=== PATIENT | male | born 1970 | race Caucasian/White ===

== ENCOUNTER 2021-01-20 18:47 | Emergency (ER) | payer SELFPAY ==
[~2021-01-20] VITALS: Ht 167.6 cm; Wt 109.1 kg
[2021-01-20] MEDS ORDERED: TRAM50TA PO (21:16)
--- NOTE | 2021-01-20 21:17 | PHYS DOC ---
Past Medical History Past Medical History: Diabetes-Type II Past Surgical History: Tonsillectomy Additional Past Surgical Histo: RIGHT FOOT FRACTURE Smoking Status: Never Smoker Alcohol Use: None General Adult EDM: Chief Complaint: LOWEREXTREMITY INJURY HPI: HPI: Patient is a 50 year old male who presents with was helping move some furniture and was pushing it up some stairs when he felt a snap in a pool like a rubber band on his calf. No tenderness to his right calf with a swelling lump deformity. Tenderness to this area also. Patient rating his pain a 9 out of 10. Patient has a history of diabetes, right foot fracture and tonsillectomy. He states he does have an orthopedic doctor at home at in [place], [place]. He states that if he needs to he can leave and go home tomorrow. Review of Systems: Review of Systems: Constitutional: Denies fever or chills. [] Eyes: Denies change in visual acuity. [] HENT: Denies nasal congestion or sore throat. [] Respiratory: Denies cough or shortness of breath. [] Cardiovascular: Denies chest pain or + right calf lump edema. [] GI: Denies abdominal pain, nausea, vomiting, bloody stools or diarrhea. [] : Denies dysuria. [] Musculoskeletal: Denies back pain or joint pain. + Right calf pain [] Integument: Denies rash. [] Neurologic: Denies headache, focal weakness or sensory changes. [] Endocrine: Denies polyuria or polydipsia. [] Lymphatic: Denies swollen glands. [] Psychiatric: Denies depression or anxiety. [] Heart Score: C/O Chest Pain: No Risk Factors: Risk Factors: DM, Current or recent (<one month) smoker, HTN, HLP, family history of CAD, obesity. Risk Scores: Score 0 - 3: 2.5% MACE over next 6 weeks - Discharge Home Score 4 - 6: 20.3% MACE over next 6 weeks - Admit for Clinical Observation Score 7 - 10: 72.7% MACE over next 6 weeks - Early Invasive Strategies Allergies: Allergies: Allergies Coded Allergies Type Severity Reaction Last Updated Verified No Known Drug Allergies 01/20/21 No Physical Exam: PE: Constitutional: Well developed, well nourished, no acute distress, non-toxic appearance. [] HENT: Normocephalic, atraumatic, bilateral external ears normal, oropharynx moist, no oral exudates, nose normal. [] Eyes: PERRLA, EOMI, conjunctiva normal, no discharge. [] Neck: Normal range of motion, no tenderness, supple, no stridor. [] Cardiovascular:Heart rate regular rhythm, no murmur [] Lungs & Thorax: Bilateral breath sounds clear to auscultation [] Abdomen: Bowel sounds normal, soft, no tenderness, no masses, no pulsatile masses. [] Skin: Warm, dry, no erythema, no rash. [] Back: No tenderness, no CVA tenderness. [] Extremities: Right calf tenderness, no cyanosis, no clubbing, ROM intact but limited, 1+ lump edema to back of calf. [] Neurologic: Alert and oriented X 3, normal motor function, normal sensory function, no focal deficits noted. [] Psychologic: Affect normal, judgement normal, mood normal. [] Current Patient Data: Vital Signs: Vital Signs Date Time Temp Pulse Resp B/P (MAP) Pulse Ox O2 Delivery O2 Flow Rate FiO2 01/20/21 20:08 98.5 20 167/107 (127) Room Air 98.5 EKG: EKG: [] Radiology/Procedures: Radiology/Procedures: [] Impression: [facility] [address] [place], [place] [id number] IMAGING REPORT Signed PATIENT: EVON JUNE ACCOUNT: [id number] : 1970 LOCATION: ER AGE: 50 SEX: M EXAM STATUS: REG ER ORD. PHYSICIAN: KAREL BISHOP APRN REASON: FELT A SNAP IN HIS CALF PROCEDURE: TIBIA FIBULA RIGHT XR KNEE 4 VIEWS WITH PATELLA_RT, XR EXAM OF ANKLE_RIGHT 3VIEWS, XR RT TIBIA+FIBULA Clinical indications: Reason: FELT A SNAP IN HIS CALF pain Findings: Three-view right ankle study: Old healed fractures of the distal right fibula and medial malleolus of the distal right tibia are seen with metallic surgical hardware. Nonunited ossification center of the distal right fibular epiphysis is seen. No acute-appearing fracture is evident. There is lucency of the medial dome of the talus consistent with an old osteochondral lesion. Three-view right tibia and fibula: No acute fracture or dislocation or lytic process is seen. 4 view right knee study: The patella is normally aligned. No acute fracture or dislocation or lytic process is evident. 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 There is mild degenerative osteoarthritis of the lateral tibial femoral joint compartment. There is mild degenerative osteoarthritis of the patellofemoral joint compartment. No significant knee joint effusion is seen. IMPRESSION: No acute fracture. Old healed fractures with fixation hardware involving the distal right fibula and the medial malleolus of the distal right tibia. Lucency of the dome of the talus is seen consistent with an old osteochondral lesion. This may be further evaluated with outpatient MRI study of the right ankle if clinically needed. Electronically signed by: Jovani Wise MD (01/20/2021 9:14 PM) [id number] DICTATED and SIGNED BY: JOVANI WISE MD DATE: 01/20/21 [id number] 0 Course & Med Decision Making: Course & Med Decision Making Pertinent Labs and Imaging studies reviewed. (See chart for details) Patient is alert and oriented x4. Ambulatory but limping on the lower extremity. Patient does have control of his knee with full range of motion in the ankle but it is painful with movement. He can wiggle his toes. Pedal pulses strong and present. Cap refill less than 2 seconds. There is no bruising seen. Patient will be placed in a posterior and stirrup splint. He also be given crutches. Splint assessment: Neurovascularly intact post splint replacement with good fit. Patient's extremity symptoms have stabilized well they have been evaluated in the department and are appropriate for outpatient follow-up. No evidence of compartment syndrome, neurologic injury, vascular injury, open joint, open fracture, tendon laceration, or foreign body. [] Dragon Disclaimer: Dragon Disclaimer: This electronic medical record was generated, in whole or in part, using a voice recognition dictation system. Departure Departure Impression: Primary Impression: Leg pain, right Disposition: 01 HOME / SELF CARE / HOMELESS Referrals: UNKNOWN PCP NAME (PCP) ROBERT VACA MD Patient Instructions: Patellar Tendon Tear/Disruption with [facility], Posterior Tibial Tendon Rupture with [facility] Additional Instructions: Keep using ice and elevation. Take medication as prescribed and with food. Nerve pain medication will make you sleepy. Do not drive or drink any alcohol while taking the pain medication. Follow-up with your orthopedic doctor as soon as possible. Scripts Tramadol Hcl (TRAMADOL HCL) 50 Mg Tablet 50 MG PO Q6HRS PRN for PAIN, #15 TAB Prov: KAREL BISHOP APRN 01/20/21 KAREL BISHOP APRN Jan 20, 2021 21:17
[2021-01-20] MEDS ORDERED: traMADol 50 MG TABLET PO ONE (22:00)
[2021-01-20 22:05] VITALS: BP 152/91
== END 2021-01-20 22:06 | disposition home or self-care (01) ==
LOC: ER 18:47
DX: M79.604 Pain in right leg (principal); R22.41 Localized swelling, mass and lump, right lower limb; E11.9 Type 2 diabetes mellitus without complications
CPT/HCPCS: 29515; 73564; 73590; 73610; 99284